=== PATIENT | male | born 1945 | race Caucasian/White ===

== ENCOUNTER → 2017-10-02 14:17 | Outpatient (CLI) | payer MEDICARE, SELFPAY ==
[2017-10-02 15:35] LABS: PSA,Total- Diagnostic 0.04 ng/mL (0.0-4.0)
== END ==
PROVIDERS: Family Provider Family Medicine; PCP Family Medicine; Visit Provider Urology
DX: C61 Malignant neoplasm of prostate (principal)
CPT/HCPCS: 36415; 84153

== ENCOUNTER → 2018-12-10 14:02 | Outpatient (CLI) | payer MEDICARE, SELFPAY ==
--- NOTE | 2018-12-10 14:31 | VDLE_ITS ---
Reason For Study: RLE Swelling RIGHT LEFT GSV is normal. CFV is compressible, spontaneous, phasic, CFV is compressible, spontaneous, phasic, competent, and demonstrates normal competent and demonstrates normal augmentation. augmentation. FV is compressible, spontaneous, phasic, competent and demonstrates normal augmentation. POP V is compressible, spontaneous, phasic, competent and demonstrates normal augmentation. T/P Trunk is compressible. PTV is compressible. RT PerV is compressible. Nonvascularized hypoechoic structure noted in popliteal fossa measuring 3.85 x 1.36 x 4.35 cm. Procedure Exam performed in department. A preliminary report was called and/or faxed to [facility]. Interpretation Summary Deep veins of the right lower extremity are patent and compressible segmentally. There is no evidence of right lower extremity deep vein thrombosis. Valvular competence appears intact within the proximal deep venous system on the right . The right greater saphenous vein appears patent and compressible segmentally. A non-vascular, hypoechoic structure is noted in the right popliteal space, measuring 3.85 cm x 1.36 cm x 4.35 cm. This probably represents a popliteal cyst. Clinical correlation is advised. Ordering Physician: Rafael Arevalo Referring Physician: Zonia Sevilla Performed By: Ana Maria Jon RVT
== END ==
PROVIDERS: Family Provider Family Medicine; PCP Family Medicine; Referring Provider Urology; Visit Provider Urology
DX: M79.89 Other specified soft tissue disorders (principal)
CPT/HCPCS: 93971

== ENCOUNTER → 2019-04-22 13:16 | Outpatient (CLI) | payer MEDICARE, SELFPAY ==
[2019-04-22 14:34] LABS: PSA,Total- Diagnostic 0.05 ng/mL (0.0-4.0)
== END ==
PROVIDERS: Family Provider Family Medicine; PCP Family Medicine; Referring Provider Urology; Visit Provider Urology
DX: C61 Malignant neoplasm of prostate (principal)
CPT/HCPCS: 36415; 84153